=== PATIENT | female | born 1950 | race Caucasian/White ===

== ENCOUNTER → 2020-12-22 | Outpatient (CLI) | payer MEDICARE ==
[~2020-12-22] MED LIST: CALC600T60 PO; CHOL10004 PO; MULT-766 PO; SIMV20TA18 PO
== END ==
LOC: LAB 08:40
PROVIDERS: ATTEND Nurse Anesthetist, Certified Registered
DX: Z01.812 Encounter for preprocedural laboratory examination (principal); Z20.822 Contact with and (suspected) exposure to COVID-19; Z86.010 Personal history of colon polyps
CPT/HCPCS: U0003

== ENCOUNTER → 2020-12-26 | Day surgery (SDC) | payer MEDICARE ==
[~2020-12-26] MED LIST changes: +IPRATRPIUM/ALBUTEROL 0.5/2.5MG 3 ML NEBU. NEB PRN; +IV RINGERS SOLUTION,LACTATED 1,000 ML IV SCH; +LIDOCAINE 2% PF 5 ML VIAL. ONE; +MIDAZOLAM HCL PF 2 MG/2 ML VIAL. IV ONE; +ONDANSETRON PF 4 MG/2 ML VIAL. IV PRN; +PROPOFOL 10,000 MCG/ML (20ML) VIAL IV ONE
[2020-12-26 10:00] VITALS: BP 112/52
== END | disposition home or self-care (01) ==
LOC: SURG 07:23
PROVIDERS: ATTEND Internal Medicine Gastroenterology
DX: Z12.11 Encounter for screening for malignant neoplasm of colon (principal); K57.30 Diverticulosis of large intestine without perforation or abscess without bleeding; G47.33 Obstructive sleep apnea (adult) (pediatric); E78.00 Pure hypercholesterolemia, unspecified; Z80.0 Family history of malignant neoplasm of digestive organs; Z86.010 Personal history of colon polyps; Z79.899 Other long term (current) drug therapy
CPT/HCPCS: G0105; J2001; J2704; J7120; 45378